=== PATIENT | female | born 1955 | race Caucasian/White ===

== ENCOUNTER 2016-06-19 11:11 | Emergency (ER) | payer OTHER ==
[2016-06-19 11:26] VITALS: O2SAT 95
[2016-06-19] MEDS ORDERED: Zofran 4 MG/2 ML VIAL IV ONE (11:34)
[2016-06-19] MEDS ORDERED: MORPHINE SULFATE 4 MG INJ IV ONE (11:34)
[2016-06-19] MEDS ORDERED: TORAdol 30 mg Injection IV ONE (11:34)
--- NOTE | 2016-06-19 11:36 | ERPHSYRPT ---
- History of Present Illness Time Seen by Provider: 06/19/16 11:29 Source: patient Exam Limitations: no limitations Patient Subjective Stated Complaint: pt states she injured right upper arm 3 days ago while playing with grandson. pt co pain to right upper arm. Triage Nursing Assessment: pt pink, warm, dry. hematoma noted to right upper arm. pulses strong and equal. Physician History: The patient is a right-handed 60-year-old female with her complaining of injuring her right upper arm 3 days ago while wrestling with her grandsons. There was an immediate pain in her right upper arm. Today there is extensive bruising over the right upper arm. She has not moved her arm due to pain. She has taken Aleve without benefit. Her past medical history is unremarkable. Occurred: days ago (3) Method of Injury: sports injury Quality: constant, sharpness Severity of Pain-Max: severe Severity of Pain-Current: severe Extremities Pain Location: arm: right Modifying Factors: Improves With: immobilization, pain medication Associated Symptoms: none Allergies/Adverse Reactions: aspirin Allergy (Verified 06/19/16 11:38) Hx Tetanus, Diphtheria Vaccination/Date Given: Yes (up to date) Hx Influenza Vaccination/Date Given: No Hx Pneumococcal Vaccination/Date Given: No Immunizations Up to Date: Yes - Review of Systems Constitutional: No Fever, No Chills Eyes: No Symptoms Ears, Nose, & Throat: No Symptoms Respiratory: No Cough, No Dyspnea Cardiac: No Chest Pain, No Edema, No Syncope Abdominal/Gastrointestinal: No Abdominal Pain, No Nausea, No Vomiting, No Diarrhea Genitourinary Symptoms: No Dysuria Musculoskeletal: Injury Skin: No Rash Neurological: No Dizziness, No Focal Weakness, No Sensory Changes Psychological: No Symptoms Endocrine: No Symptoms Hematologic/Lymphatic: No Symptoms Immunological/Allergic: No Symptoms All Other Systems: Reviewed and Negative - Past Medical History Pertinent Past Medical History: Yes Respiratory History: COPD - Past Surgical History Past Surgical History: Yes Female Surgical History: Tubal Ligation - Social History Smoking Status: Current every day smoker How long have you smoked: 55 Exposure to second hand smoke: Yes Drug Use: none Patient Lives Alone: No - Nursing Vital Signs Nursing Vital Signs: Initial Vital Signs Temperature 98.3 F Temperature Source Oral Pulse Rate 77 Respiratory Rate 16 Blood Pressure [Right Arm] 135/71 Pain Intensity 7 - Physical Exam General Appearance: mild distress Eyes, Ears, Nose, Throat Exam: moist mucous membranes Neck Exam: non-tender, supple Cardiovascular/Respiratory Exam: chest non-tender, normal breath sounds, regular rate/rhythm, no respiratory distress Abdominal Exam: non-tender Back Exam: normal inspection, No vertebral tenderness Shoulder Exam: normal inspection Elbow/Forearm Exam: ecchymosis, limited ROM (right upper arm), pain, soft tissue tenderness, swelling Wrist Exam: normal inspection Hand Exam: normal inspection Neuro/Tendon Exam: normal sensation, normal motor functions Mental Status Exam: alert, oriented x 3, cooperative Skin Exam: ecchymosis SpO2 Interpretation: normal SpO2: 95 Oxygen Delivery: Room Air - Radiology Exams Right Humerus X-ray Interpretation: Teleradiologist Report, Non-displaced Fracture ( nondisplaced humeral neck fracture per Dr Jensen) Ordered Tests: Active Orders 24 hr Category Date Time Status IV Insertion STAT Care 06/19/16 11:34 Active Sling Application STAT Care 06/19/16 12:11 Ordered HUMERUS Stat Exams 06/19/16 11:34 Taken Medication Summary Discontinued Medications Generic Name Dose Route Start Last Admin Trade Name Obdulioq PRN Reason Stop Dose Admin Ketorolac Tromethamine 30 mg 06/19/16 11:34 06/19/16 11:48 Toradol 30 Mg Injection IV 06/19/16 11:35 30 mg STAT ONE Administration Ketorolac Tromethamine Confirm 06/19/16 11:39 Toradol 30 Mg Injection Administered 06/19/16 11:40 Dose 30 mg .ROUTE .STK-MED ONE Morphine Sulfate 4 mg 06/19/16 11:34 06/19/16 11:48 Morphine Sulfate 4 Mg Inj IV 06/19/16 11:35 4 mg STAT ONE Administration Morphine Sulfate Confirm 06/19/16 11:39 Morphine Sulfate 4 Mg Inj Administered 06/19/16 11:40 Dose 4 mg .ROUTE .STK-MED ONE Ondansetron HCl 4 mg 06/19/16 11:34 06/19/16 11:44 Zofran 4 Mg/2 Ml Vial IV 06/19/16 11:35 4 mg STAT ONE Administration Ondansetron HCl Confirm 06/19/16 11:39 Zofran 4 Mg/2 Ml Vial Administered 06/19/16 11:40 Dose 4 mg .ROUTE .STK-MED ONE - Progress Progress: improved Counseled pt/family regarding: need for follow-up, rad results - Departure Time of Disposition: 12:27 Departure Disposition: Home Clinical Impression: Right humeral fracture Condition: Stable Critical Care Time: No Additional Instructions: You have a fracture of your right humerus. Wear the sling and swath until released. Take naproxen 500 mg every 12 hours as needed. Take Tylenol No. 3 one tablet every 4-6 hours as needed. Follow-up tomorrow with your primary medical doctor. Prescriptions: Acetaminophen with Codeine [Tylenol #3 (Acetaminophen-Cod #3) Tablet] 1 each PO Q4-6HPRN PRN #12 tablet PRN Reason: Pain Naproxen 500 mg PO BID PRN #30 tablet.
[2016-06-19] MEDS ORDERED: TORAdol 30 mg Injection ONE (11:39)
[2016-06-19] MEDS ORDERED: MORPHINE SULFATE 4 MG INJ ONE (11:39)
[2016-06-19] MEDS ORDERED: Zofran 4 MG/2 ML VIAL ONE (11:39)
--- NOTE | 2016-06-19 12:22 | XRAY ---
Indication: Pain following injury. Comparison: None 2 views of the right humerus demonstrates nondisplaced humeral neck fracture with fracture line extending to also involve the greater tuberosity. Elsewhere mild AC degenerative arthropathy and right lung calcified granuloma. No other bony, articular, or soft tissue abnormalities.
[2016-06-19 13:04] VITALS: BP 117/71; PULSE 84
== END 2016-06-19 13:02 | disposition home or self-care (01) ==
LOC: ED 11:11
DX: S42.301A Unspecified fracture of shaft of humerus, right arm, initial encounter for closed fracture (principal)
CPT/HCPCS: 36000; 73060; 96374; 96375; 99284; J1885; J2270; J2405; L3650